=== PATIENT | female | born 1940 | race American Indian/Alaskan Native ===

== ENCOUNTER 2023-11-19 06:45 | Inpatient (IN) | payer BC ==
[2023-11-19] VITALS (7 sets, daily range): BP systolic 152–195; BP diastolic 71–79; PULSE 64–68; RESP 16–18; TEMP 97.6–98.9; O2SAT 93–94
[~2023-11-19] VITALS: Ht 161.3 cm; Wt 72.2 kg
[2023-11-19] MEDS: mag hydrox/Alum hydrox/simeth 30ml oral suspension PO ONE (07:20)
[2023-11-19] MEDS: LIDOcaine 2% Viscous 15ml cup MM ONE (07:20)
[2023-11-19 09:08] LABS: ALBUMIN 3.9 G/DL (3.4-5.0); ANION GAP 9 (8-16); BLOOD UREA NITROGEN 18 MG/DL (7-18); BUN/CREATININE RATIO 27.7 (10.0-20.0); CALCIUM 8.8 MG/DL (8.5-10.1); CHLORIDE 103 MMOL/L (99-107); CREATININE 0.65 MG/DL (0.40-0.90); GLUCOSE 106 MG/DL (70-104); POTASSIUM 3.8 MMOL/L (3.5-5.1); SODIUM 137 MMOL/L (135-145); TOTAL CARBON DIOXIDE 25.3 MMOL/L (24-32); eCRCL 55 ML/MIN; eGFR 87 ML/MIN
[2023-11-19 09:09] LABS: BASOPHILS # (AUTO) 0.1 X10'3 (0-0.2); BASOPHILS % (AUTO) 1.4 % (0-1); EOSINOPHILS # (AUTO) 0.4 X10'3 (0-0.9); EOSINOPHILS % (AUTO) 4.3 % (0-6); HEMATOCRIT 44.7 % (35.0-45.0); HEMOGLOBIN 14.9 g/dl (12.0-16.0); LYMPHOCYTES # (AUTO) 1.7 X10'3 (1.1-4.8); LYMPHOCYTES % (AUTO) 16.6 % (21-51); MEAN CORPUSCULAR HEMOGLOBIN 31.8 PG (27.0-31.0); MEAN CORPUSCULAR HGB CONC 33.3 g/dL (33.0-36.5); MEAN CORPUSCULAR VOLUME 95.5 FL (78-98); MEAN PLATELET VOLUME 8.1 FL (7.4-10.4); MONOCYTES # (AUTO) 0.5 X10'3 (0-0.9); MONOCYTES % (AUTO) 5.3 % (2-12); NEUTROPHILS # (AUTO) 7.2 X10'3 (1.8-7.7); NEUTROPHILS % (AUTO) 72.4 % (42-75); PLATELET COUNT 248 X10'3 (140-440); RED BLOOD COUNT 4.68 X10'6 (4.20-5.60); RED CELL DISTRIBUTION WIDTH 13.9 % (11.5-14.5)
[2023-11-19] MEDS: dexamethasone sod phosphate 10mg/ml inj IV STA (09:33)
[2023-11-19] MEDS ORDERED: mag hydrox/Alum hydrox/simeth 30ml oral suspension PO PRN (12:25)
[2023-11-19] MEDS ORDERED: magnesium hydroxide 30ml (MOM) UD suspension PO PRN (12:25)
[2023-11-19] MEDS ORDERED: ondansetron/PF 4mg/2ml inj IV PRN (12:25)
[2023-11-19] MEDS ORDERED: morphine 2 MG/ML inj. syringe IV PRN ×2 (12:25)
[2023-11-19 12:46] LABS: APTT 27 SECONDS (22-32); PROTHROMBIN TIME 10.8 SECONDS (9.0-12.0)
[2023-11-19] MEDS: aspirin 300mg supp.rect RC ONE (13:02)
[2023-11-19] MEDS ORDERED: iohexol 350MG/ML 100ml bottle IV ONE (13:25)
[2023-11-19] MEDS: LORazepam 0.5 MG tablet PO PRN (13:33)
[2023-11-19 13:44] LABS: CHOL/HDL RATIO 4.5 (0.00-4.99); CHOLESTEROL 264 MG/DL (0-200); HDL CHOLESTEROL 59 MG/DL (35-60); LDL CHOLESTEROL 174 MG/DL (50-100); PRO BRAIN NATRIURETIC PEPTIDE 134 PG/ML (0-450); TRIGLYCERIDES 91 MG/DL (20-135)
[2023-11-19] MEDS: labetalol 20mg/4ml (5mg/ml) syringe IV PRN (13:49)
[2023-11-19] MEDS ORDERED: hydrALAZINE 20mg/ml inj. IV PRN (15:40)
[2023-11-19] MEDS ORDERED: NO HOME MEDS (16:32)
[2023-11-19] MEDS: normal saline 1000ml 1,000 ML IV SCH (21:22)
[2023-11-19] MEDS: atorvastatin 20mg tablet PO SCH (22:10)
[2023-11-19] MEDS: docusate sod 100mg capsule PO SCH (22:10)
[2023-11-19] MEDS: clopidogrel 75mg tablet PO SCH (22:10)
[2023-11-20] VITALS (7 sets, daily range): BP systolic 183–208; BP diastolic 69–85; PULSE 59–65; RESP 16–18; TEMP 97–98.3; O2SAT 93–96
[2023-11-20 07:13] LABS: BASOPHILS % (AUTO) 0.2 % (0-1); EOSINOPHILS % (AUTO) 0.1 % (0-6); HEMATOCRIT 40.8 % (35.0-45.0); HEMOGLOBIN 13.8 g/dl (12.0-16.0); LYMPHOCYTES # (AUTO) 1.4 X10'3 (1.1-4.8); LYMPHOCYTES % (AUTO) 14.4 % (21-51); MEAN CORPUSCULAR HEMOGLOBIN 32.2 PG (27.0-31.0); MEAN CORPUSCULAR HGB CONC 33.7 g/dL (33.0-36.5); MEAN CORPUSCULAR VOLUME 95.3 FL (78-98); MEAN PLATELET VOLUME 8.3 FL (7.4-10.4); MONOCYTES # (AUTO) 1.1 X10'3 (0-0.9); MONOCYTES % (AUTO) 11.7 % (2-12); NEUTROPHILS % (AUTO) 73.6 % (42-75); PLATELET COUNT 231 X10'3 (140-440); RED BLOOD COUNT 4.28 X10'6 (4.20-5.60); RED CELL DISTRIBUTION WIDTH 13.5 % (11.5-14.5); WHITE BLOOD COUNT 9.5 X10'3 (4.5-11.0)
[2023-11-20 07:24] LABS: ALBUMIN 3.3 G/DL (3.4-5.0); ANION GAP 9 (8-16); BLOOD UREA NITROGEN 19 MG/DL (7-18); BUN/CREATININE RATIO 29.2 (10.0-20.0); CALCIUM 8.4 MG/DL (8.5-10.1); CHLORIDE 105 MMOL/L (99-107); CHOL/HDL RATIO 4.2 (0.00-4.99); CHOLESTEROL 237 MG/DL (0-200); CREATININE 0.65 MG/DL (0.40-0.90); GLUCOSE 120 MG/DL (70-104); HDL CHOLESTEROL 57 MG/DL (35-60); LDL CHOLESTEROL 169 MG/DL (50-100); POTASSIUM 3.7 MMOL/L (3.5-5.1); SODIUM 139 MMOL/L (135-145); TOTAL CARBON DIOXIDE 25.2 MMOL/L (24-32); TRIGLYCERIDES 74 MG/DL (20-135); eCRCL 56 ML/MIN; eGFR 87 ML/MIN
[2023-11-20] MEDS: aspirin 81mg, enteric-coated 1 TAB TABLET.DR PO SCH (08:00)
[2023-11-20] MEDS: enoxaparin 40mg/0.4ml syringe SUBCUT SCH (08:27)
[2023-11-21 06:00] VITALS: BP 189/73; PULSE 79; RESP 11; TEMP 98; O2SAT 92
[2023-11-21 06:04] LABS: BASOPHILS % (AUTO) 0.4 % (0-1); EOSINOPHILS # (AUTO) 0.2 X10'3 (0-0.9); EOSINOPHILS % (AUTO) 2.2 % (0-6); HEMATOCRIT 39.5 % (35.0-45.0); HEMOGLOBIN 13.3 g/dl (12.0-16.0); LYMPHOCYTES # (AUTO) 1.8 X10'3 (1.1-4.8); LYMPHOCYTES % (AUTO) 16.7 % (21-51); MEAN CORPUSCULAR HEMOGLOBIN 32.5 PG (27.0-31.0); MEAN CORPUSCULAR HGB CONC 33.8 g/dL (33.0-36.5); MEAN CORPUSCULAR VOLUME 96.2 FL (78-98); MEAN PLATELET VOLUME 8.3 FL (7.4-10.4); MONOCYTES % (AUTO) 9.1 % (2-12); NEUTROPHILS # (AUTO) 7.5 X10'3 (1.8-7.7); NEUTROPHILS % (AUTO) 71.6 % (42-75); PLATELET COUNT 209 X10'3 (140-440); RED BLOOD COUNT 4.11 X10'6 (4.20-5.60); WHITE BLOOD COUNT 10.5 X10'3 (4.5-11.0)
[2023-11-21 06:23] LABS: ALBUMIN 3.2 G/DL (3.4-5.0); ANION GAP 11 (8-16); BLOOD UREA NITROGEN 21 MG/DL (7-18); BUN/CREATININE RATIO 33.9 (10.0-20.0); CALCIUM 8.5 MG/DL (8.5-10.1); CHLORIDE 108 MMOL/L (99-107); CREATININE 0.62 MG/DL (0.40-0.90); GLUCOSE 93 MG/DL (70-104); POTASSIUM 3.6 MMOL/L (3.5-5.1); SODIUM 144 MMOL/L (135-145); TOTAL CARBON DIOXIDE 24.7 MMOL/L (24-32); eCRCL 59 ML/MIN; eGFR > 90 ML/MIN
[2023-11-21 10:00] VITALS: BP 208/79; PULSE 79; RESP 11; TEMP 98; O2SAT 92
[2023-11-21] MEDS ORDERED: labetalol 20mg/4ml (5mg/ml) syringe IV PRN (11:35)
[2023-11-21] MEDS: dextrose 5%-1/2 normal saline 1,000 ML IV SCH (12:47)
[2023-11-21 18:00] VITALS: BP 217/83; PULSE 61; RESP 15; TEMP 98.7; O2SAT 98
[2023-11-21 20:00] VITALS: RESP 16; O2SAT 98
[2023-11-21 21:47] VITALS: BP 203/82; PULSE 58; RESP 16; TEMP 98.7; O2SAT 96
[2023-11-22 06:27] LABS: BASOPHILS # (AUTO) 0.1 X10'3 (0-0.2); BASOPHILS % (AUTO) 0.6 % (0-1); EOSINOPHILS # (AUTO) 0.3 X10'3 (0-0.9); EOSINOPHILS % (AUTO) 3.5 % (0-6); HEMATOCRIT 42.5 % (35.0-45.0); HEMOGLOBIN 14.2 g/dl (12.0-16.0); LYMPHOCYTES # (AUTO) 1.5 X10'3 (1.1-4.8); LYMPHOCYTES % (AUTO) 15.9 % (21-51); MEAN CORPUSCULAR HGB CONC 33.4 g/dL (33.0-36.5); MEAN CORPUSCULAR VOLUME 95.8 FL (78-98); MEAN PLATELET VOLUME 8.3 FL (7.4-10.4); MONOCYTES % (AUTO) 10.2 % (2-12); NEUTROPHILS # (AUTO) 6.8 X10'3 (1.8-7.7); NEUTROPHILS % (AUTO) 69.8 % (42-75); PLATELET COUNT 205 X10'3 (140-440); RED BLOOD COUNT 4.43 X10'6 (4.20-5.60); RED CELL DISTRIBUTION WIDTH 13.9 % (11.5-14.5); WHITE BLOOD COUNT 9.7 X10'3 (4.5-11.0)
[2023-11-22 06:36] LABS: ALBUMIN 3.1 G/DL (3.4-5.0); ANION GAP 5 (8-16); BLOOD UREA NITROGEN 10 MG/DL (7-18); BUN/CREATININE RATIO 16.9 (10.0-20.0); CALCIUM 8.5 MG/DL (8.5-10.1); CHLORIDE 103 MMOL/L (99-107); CREATININE 0.59 MG/DL (0.40-0.90); GLUCOSE 117 MG/DL (70-104); POTASSIUM 3.2 MMOL/L (3.5-5.1); SODIUM 137 MMOL/L (135-145); TOTAL CARBON DIOXIDE 28.7 MMOL/L (24-32); eCRCL 62 ML/MIN; eGFR > 90 ML/MIN
[2023-11-22] MEDS: lisinopril 10 MG tablet PO SCH (08:00)
[2023-11-22 08:19] VITALS: BP 183/77; PULSE 56; RESP 16; TEMP 98.1; O2SAT 95
[2023-11-22] MEDS ORDERED: magnesium Cl slow-release 64mg tablet PO PRN (08:45)
[2023-11-22] MEDS ORDERED: magnesium 4gm in 100ml NS 100 ML IV PRN (08:45)
[2023-11-22] MEDS ORDERED: magnesium 2GM in 50ml NS 50 ML IV PRN (08:45)
[2023-11-22] MEDS ORDERED: potassium Cl 20 mEq SR tablet PO PRN ×2 (08:45)
[2023-11-22 11:12] VITALS: BP 191/87; PULSE 58; RESP 16; TEMP 98.3; O2SAT 94
[2023-11-22] MEDS: aspirin 300mg supp.rect RC ONE (12:10)
[2023-11-22] MEDS ORDERED: hydrALAZINE 20mg/ml inj. IV PRN (14:05)
[2023-11-22] MEDS ORDERED: atorvastatin 20mg tablet PO SCH (14:20)
[2023-11-22] MEDS ORDERED: aspirin 81mg tab.chew NG SCH (15:07)
[2023-11-22] MEDS ORDERED: LORazepam 0.5 MG tablet NG PRN (15:08)
[2023-11-22] MEDS ORDERED: potassium Cl 20 mEq SR tablet NG PRN (15:10)
[2023-11-22] MEDS ORDERED: POTASSIUM BICARB 20meq eff tab 20 MEQ TABLET.EFF NG PRN (15:35)
[2023-11-22] MEDS ORDERED: mag hydrox/Alum hydrox/simeth 30ml oral suspension NG PRN (15:41)
[2023-11-22] MEDS: pantoprazole 40 MG vial IV SCH (16:03)
[2023-11-22] MEDS: lisinopril 10 MG tablet NG ONE (16:05)
[2023-11-22] MEDS: atorvastatin 20mg tablet NG ONE (16:05)
[2023-11-22] MEDS: clopidogrel 75mg tablet NG ONE (16:06)
[2023-11-22] MEDS: aspirin 81mg tab.chew NG ONE (16:06)
[2023-11-22] MEDS: potassium Cl 40MEQ/1/2NS 520ml 520 ML IV PRN (16:49)
[2023-11-22 18:00] VITALS: BP 217/94; PULSE 65; RESP 14; TEMP 98.7; O2SAT 95
[2023-11-22 20:00] VITALS: RESP 17; O2SAT 95
[2023-11-22] MEDS: K and/or MAG REPLACEMENT MC SCH (20:00)
[2023-11-22 20:50] VITALS: RESP 16
[2023-11-22] MEDS: docusate sodium 100mg/10ml UD cup NG SCH (21:07)
[2023-11-22 22:00] VITALS: BP 182/83; PULSE 61; RESP 15; TEMP 98.3; O2SAT 95
[2023-11-23] VITALS (7 sets, daily range): BP systolic 122–190; BP diastolic 74–79; PULSE 67–69; RESP 14–20; TEMP 98–98.6; O2SAT 93–96
[2023-11-23] MEDS ORDERED: atorvastatin 20mg tablet PO SCH (08:00)
[2023-11-23] MEDS: aspirin 81mg tab.chew NG SCH (08:04)
[2023-11-23] MEDS: atorvastatin 20mg tablet NG SCH (08:05)
[2023-11-23] MEDS: lisinopril 10 MG tablet NG SCH (08:11)
[2023-11-23] MEDS: clopidogrel 75mg tablet NG SCH (08:11)
[2023-11-23 08:40] LABS: BASOPHILS # (AUTO) 0.1 X10'3 (0-0.2); BASOPHILS % (AUTO) 0.5 % (0-1); EOSINOPHILS # (AUTO) 0.4 X10'3 (0-0.9); EOSINOPHILS % (AUTO) 3.6 % (0-6); HEMATOCRIT 43.5 % (35.0-45.0); HEMOGLOBIN 14.6 g/dl (12.0-16.0); LYMPHOCYTES # (AUTO) 1.9 X10'3 (1.1-4.8); LYMPHOCYTES % (AUTO) 16.8 % (21-51); MEAN CORPUSCULAR HEMOGLOBIN 32.1 PG (27.0-31.0); MEAN CORPUSCULAR HGB CONC 33.6 g/dL (33.0-36.5); MEAN CORPUSCULAR VOLUME 95.6 FL (78-98); MEAN PLATELET VOLUME 8.4 FL (7.4-10.4); MONOCYTES # (AUTO) 1.4 X10'3 (0-0.9); MONOCYTES % (AUTO) 11.9 % (2-12); NEUTROPHILS # (AUTO) 7.7 X10'3 (1.8-7.7); NEUTROPHILS % (AUTO) 67.2 % (42-75); PLATELET COUNT 229 X10'3 (140-440); RED BLOOD COUNT 4.55 X10'6 (4.20-5.60); RED CELL DISTRIBUTION WIDTH 13.6 % (11.5-14.5); WHITE BLOOD COUNT 11.5 X10'3 (4.5-11.0)
[2023-11-23 09:05] LABS: ALBUMIN 3.2 G/DL (3.4-5.0); ANION GAP 10 (8-16); BLOOD UREA NITROGEN 11 MG/DL (7-18); BUN/CREATININE RATIO 16.9 (10.0-20.0); CALCIUM 8.6 MG/DL (8.5-10.1); CHLORIDE 105 MMOL/L (99-107); CREATININE 0.65 MG/DL (0.40-0.90); GLUCOSE 99 MG/DL (70-104); POTASSIUM 3.5 MMOL/L (3.5-5.1); SODIUM 142 MMOL/L (135-145); TOTAL CARBON DIOXIDE 27.1 MMOL/L (24-32); eCRCL 56 ML/MIN; eGFR 87 ML/MIN
[2023-11-23 14:20] LABS: ALANINE AMINOTRANSFERASE 50 U/L (12-78); ASPARTATE AMINO TRANSFERASE 38 U/L (10-37)
[2023-11-23] MEDS: hydrALAZINE 20mg/ml inj. IV PRN (17:45)
[2023-11-24] VITALS (7 sets, daily range): BP systolic 177–231; BP diastolic 66–98; PULSE 65–79; RESP 14–18; TEMP 97–99; O2SAT 94–97
[2023-11-24 07:29] LABS: BASOPHILS # (AUTO) 0.1 X10'3 (0-0.2); BASOPHILS % (AUTO) 0.5 % (0-1); EOSINOPHILS # (AUTO) 0.2 X10'3 (0-0.9); EOSINOPHILS % (AUTO) 1.7 % (0-6); HEMATOCRIT 41.8 % (35.0-45.0); HEMOGLOBIN 13.9 g/dl (12.0-16.0); LYMPHOCYTES # (AUTO) 1.5 X10'3 (1.1-4.8); LYMPHOCYTES % (AUTO) 10.7 % (21-51); MEAN CORPUSCULAR HEMOGLOBIN 31.9 PG (27.0-31.0); MEAN CORPUSCULAR HGB CONC 33.2 g/dL (33.0-36.5); MEAN CORPUSCULAR VOLUME 96.1 FL (78-98); MEAN PLATELET VOLUME 8.3 FL (7.4-10.4); MONOCYTES # (AUTO) 1.8 X10'3 (0-0.9); MONOCYTES % (AUTO) 12.7 % (2-12); NEUTROPHILS # (AUTO) 10.3 X10'3 (1.8-7.7); NEUTROPHILS % (AUTO) 74.4 % (42-75); PLATELET COUNT 224 X10'3 (140-440); RED BLOOD COUNT 4.36 X10'6 (4.20-5.60); RED CELL DISTRIBUTION WIDTH 13.7 % (11.5-14.5); WHITE BLOOD COUNT 13.9 X10'3 (4.5-11.0)
[2023-11-24 07:47] LABS: ALANINE AMINOTRANSFERASE 39 U/L (12-78); ALBUMIN 2.9 G/DL (3.4-5.0); ALBUMIN/GLOBULIN RATIO 0.6 (1.1-1.5); ALKALINE PHOSPHATASE 75 IU/L (46-116); ANION GAP 8 (8-16); ASPARTATE AMINO TRANSFERASE 13 U/L (10-37); BILIRUBIN,TOTAL 0.6 MG/DL (0.1-1.0); BLOOD UREA NITROGEN 11 MG/DL (7-18); BUN/CREATININE RATIO 18.6 (10.0-20.0); CALCIUM 8.4 MG/DL (8.5-10.1); CHLORIDE 105 MMOL/L (99-107); CREATININE 0.59 MG/DL (0.40-0.90); GLUCOSE 131 MG/DL (70-104); POTASSIUM 3.4 MMOL/L (3.5-5.1); PREALBUMIN 19.8 MG/DL (19-36); SODIUM 141 MMOL/L (135-145); TOTAL CARBON DIOXIDE 27.9 MMOL/L (24-32); TOTAL PROTEIN 7.4 G/DL (6.4-8.2); eCRCL 62 ML/MIN; eGFR > 90 ML/MIN
[2023-11-24] MEDS: POTASSIUM BICARB 20meq eff tab 20 MEQ TABLET.EFF NG PRN (08:35)
[2023-11-24] MEDS ORDERED: dextrose 5%-1/2 normal saline 1,000 ML IV SCH (08:45)
[2023-11-24] MEDS: normal saline 1000ml 1,000 ML IV SCH (20:00)
[2023-11-24] MEDS: lisinopril 20mg tablet PO ONE (23:35)
[2023-11-25] VITALS (8 sets, daily range): BP systolic 153–203; BP diastolic 50–78; PULSE 71–85; RESP 15–23; TEMP 97.4–98.3; O2SAT 92–95
[2023-11-25] MEDS: cloNIDine 0.1 MG/24 HOUR patch (7 day patch) TD SCH (00:15)
[2023-11-25] MEDS: lisinopril 10 MG tablet NG SCH (08:15)
[2023-11-25] MEDS: nystatin 15 GM powder TP SCH (08:16)
[2023-11-25] MEDS: HYDROchlorothiazide 12.5mg capsule NG SCH (10:21)
[2023-11-25 13:42] LABS: BASOPHILS % (AUTO) 0.2 % (0-1); EOSINOPHILS # (AUTO) 0.2 X10'3 (0-0.9); EOSINOPHILS % (AUTO) 1.1 % (0-6); HEMATOCRIT 42.4 % (35.0-45.0); HEMOGLOBIN 14.2 g/dl (12.0-16.0); LYMPHOCYTES # (AUTO) 0.9 X10'3 (1.1-4.8); LYMPHOCYTES % (AUTO) 5.2 % (21-51); MEAN CORPUSCULAR HEMOGLOBIN 32.2 PG (27.0-31.0); MEAN CORPUSCULAR HGB CONC 33.5 g/dL (33.0-36.5); MEAN CORPUSCULAR VOLUME 95.9 FL (78-98); MEAN PLATELET VOLUME 8.5 FL (7.4-10.4); MONOCYTES # (AUTO) 1.7 X10'3 (0-0.9); MONOCYTES % (AUTO) 9.8 % (2-12); NEUTROPHILS # (AUTO) 14.6 X10'3 (1.8-7.7); NEUTROPHILS % (AUTO) 83.7 % (42-75); PLATELET COUNT 234 X10'3 (140-440); RED BLOOD COUNT 4.42 X10'6 (4.20-5.60); RED CELL DISTRIBUTION WIDTH 13.4 % (11.5-14.5); WHITE BLOOD COUNT 17.5 X10'3 (4.5-11.0)
[2023-11-25 14:05] LABS: ALANINE AMINOTRANSFERASE 33 U/L (12-78); ALBUMIN 2.9 G/DL (3.4-5.0); ALBUMIN/GLOBULIN RATIO 0.6 (1.1-1.5); ALKALINE PHOSPHATASE 69 IU/L (46-116); ANION GAP 11 (8-16); ASPARTATE AMINO TRANSFERASE 13 U/L (10-37); BILIRUBIN,TOTAL 0.5 MG/DL (0.1-1.0); BLOOD UREA NITROGEN 11 MG/DL (7-18); BUN/CREATININE RATIO 17.7 (10.0-20.0); CALCIUM 8.8 MG/DL (8.5-10.1); CHLORIDE 104 MMOL/L (99-107); CREATININE 0.62 MG/DL (0.40-0.90); GLUCOSE 178 MG/DL (70-104); POTASSIUM 3.8 MMOL/L (3.5-5.1); SODIUM 141 MMOL/L (135-145); TOTAL CARBON DIOXIDE 26.3 MMOL/L (24-32); TOTAL PROTEIN 7.6 G/DL (6.4-8.2); eCRCL 58 ML/MIN; eGFR > 90 ML/MIN
[2023-11-25] MEDS: amLODIPine 5mg tablet NG SCH (16:00)
[2023-11-25] MEDS: hydrALAZINE 20mg/ml inj. IV PRN (21:07)
[2023-11-25] MEDS: magnesium hydroxide 30ml (MOM) UD suspension NG PRN (21:08)
[2023-11-26] VITALS (12 sets, daily range): BP systolic 137–224; BP diastolic 54–86; PULSE 0–97; RESP 0–22; TEMP 98.2–98.8; O2SAT 78–95
[2023-11-26 03:32] LABS: BILIRUBIN,URINE NEGATIVE (Neg); CLARITY,URINE CLOUDY (Clear); COLOR,URINE YELLOW (Yellow); GLUCOSE, URINE 250 mg/dl (Neg); KETONES,URINE NEGATIVE (Neg); LEUKOCYTE ESTERASE ,URINE SMALL (Neg); NITRITES, URINE NEGATIVE (Neg); OCCULT BLOOD,URINE TRACE-INTACT (Neg); PH,URINE 7.5 (4.8-8.0); PROTEIN,URINE 30 mg/dl (Neg)
[2023-11-26 03:38] LABS: UA COLLECTION TYPE STRAIGHT CATH
[2023-11-26 03:42] LABS: WBC,URINE 20-30 /HPF (0-4)
[2023-11-26 03:44] LABS: RBC,URINE 0-2 /HPF (0-2)
[2023-11-26 03:45] LABS: BACTERIA,URINE 3+ /HPF (Neg); SQUAMOUS EPITHELIAL CELL,UR FEW /LPF (FEW)
[2023-11-26 03:46] LABS: AMORPHOUS PHOSPHATES 1+; MUCUS STRANDS NONE SEEN /LPF (Neg)
[2023-11-26 06:40] LABS: BASOPHILS % (AUTO) 0.1 % (0-1); EOSINOPHILS % (AUTO) 0 % (0-6); HEMATOCRIT 43.6 % (35.0-45.0); HEMOGLOBIN 14.4 g/dl (12.0-16.0); LYMPHOCYTES # (AUTO) 0.7 X10'3 (1.1-4.8); LYMPHOCYTES % (AUTO) 3.2 % (21-51); MEAN CORPUSCULAR HEMOGLOBIN 31.8 PG (27.0-31.0); MEAN CORPUSCULAR VOLUME 96.3 FL (78-98); MEAN PLATELET VOLUME 8.4 FL (7.4-10.4); MONOCYTES # (AUTO) 1.7 X10'3 (0-0.9); MONOCYTES % (AUTO) 7.6 % (2-12); NEUTROPHILS # (AUTO) 19.8 X10'3 (1.8-7.7); NEUTROPHILS % (AUTO) 89.1 % (42-75); PLATELET COUNT 263 X10'3 (140-440); RED BLOOD COUNT 4.53 X10'6 (4.20-5.60); RED CELL DISTRIBUTION WIDTH 13.5 % (11.5-14.5); WHITE BLOOD COUNT 22.2 X10'3 (4.5-11.0)
[2023-11-26] MEDS: lisinopril 20mg tablet NG SCH (06:48)
[2023-11-26] MEDS: levoFLOXACIN-Levaquin 750MG/D5 150 ML IV SCH (07:24)
[2023-11-26] MEDS ORDERED: lisinopril 10 MG tablet NG SCH (08:00)
[2023-11-26 08:34] LABS: ALANINE AMINOTRANSFERASE 29 U/L (12-78); ALBUMIN 2.9 G/DL (3.4-5.0); ALBUMIN/GLOBULIN RATIO 0.6 (1.1-1.5); ALKALINE PHOSPHATASE 91 IU/L (46-116); ANION GAP 7 (8-16); ASPARTATE AMINO TRANSFERASE 9 U/L (10-37); BILIRUBIN,TOTAL 0.4 MG/DL (0.1-1.0); BLOOD UREA NITROGEN 20 MG/DL (7-18); BUN/CREATININE RATIO 32.8 (10.0-20.0); CALCIUM 8.8 MG/DL (8.5-10.1); CHLORIDE 98 MMOL/L (99-107); CREATININE 0.61 MG/DL (0.40-0.90); GLUCOSE 221 MG/DL (70-104); POTASSIUM 4.4 MMOL/L (3.5-5.1); SODIUM 136 MMOL/L (135-145); TOTAL CARBON DIOXIDE 30.6 MMOL/L (24-32); TOTAL PROTEIN 8.1 G/DL (6.4-8.2); eCRCL 59 ML/MIN; eGFR > 90 ML/MIN
== END 2023-11-26 13:35 | DRG 64 ==
LOC: ER 06:47 → ED HOLD 12:32 → ORTHO 4S 15:25
PROVIDERS: ADMIT Internal Medicine; ATTEND Internal Medicine
PROC: B32T1ZZ Computerized Tomography (CT Scan) of Left Pulmonary Artery using Low Osmolar Contrast (ICD-10-PCS; principal; 2023-11-19)
PROC: B3201ZZ Computerized Tomography (CT Scan) of Thoracic Aorta using Low Osmolar Contrast (ICD-10-PCS; 2023-11-19)
PROC: B32S1ZZ Computerized Tomography (CT Scan) of Right Pulmonary Artery using Low Osmolar Contrast (ICD-10-PCS; 2023-11-19)
DX: I63.29 Cerebral infarction due to unspecified occlusion or stenosis of other precerebral arteries (principal); J69.0 Pneumonitis due to inhalation of food and vomit; I16.1 Hypertensive emergency; I10 Essential (primary) hypertension; R29.701 NIHSS score 1; Z66 Do not resuscitate; D72.829 Elevated white blood cell count, unspecified; Z85.3 Personal history of malignant neoplasm of breast; Z90.10 Acquired absence of unspecified breast and nipple; Z86.718 Personal history of other venous thrombosis and embolism; Z90.49 Acquired absence of other specified parts of digestive tract; Z91.148 Patient's other noncompliance with medication regimen for other reason; Z88.5 Allergy status to narcotic agent; Z88.0 Allergy status to penicillin; Z88.2 Allergy status to sulfonamides; Z88.8 Allergy status to other drugs, medicaments and biological substances; Z88.6 Allergy status to analgesic agent; Z91.013 Allergy to seafood; R06.03 Acute respiratory distress
CPT/HCPCS: 36415; 70450; 70490; 70496; 70498; 70551; 71045; 74018; 80048; 80053; 80061; 81001; 82948; 83036; 83880; 84134; 84145; 84450; 84460; 84484; 85025; 85610; 85651; 85730; 87077; 87081; 87088; 87186; 92508; 92616; 93306; 94760; 97116; 97162; 97530; 99285; A4314; A6154; A6250; A6258; A6446; A6449; C1758; C9113; G0378; J0360; J1100; J1650; J1956; J3480; J3490; J7030; Q9967